=== PATIENT | male | born 1970 | race Caucasian/White ===

== ENCOUNTER 2023-01-11 00:06 | Emergency (ER) | payer BC | END 2023-01-11 02:12 | disposition home or self-care (01) | LOC: JP.ED 00:06 → EDSEX 00:06 → JP.ED 02:12 | DX: S80.01XA Contusion of right knee, initial encounter (principal); I10 Essential (primary) hypertension; Z87.891 Personal history of nicotine dependence; Z91.030 Bee allergy status; W06.XXXA Fall from bed, initial encounter | CPT/HCPCS: 73562-26-RT; 73562-RT; 99283 ==